=== PATIENT | female | born 1960 | race Caucasian/White ===

== ENCOUNTER → 2018-06-13 | Outpatient (CLI) | payer OTHER ==
[~2018-06-13] MED LIST: LEVOTHYROXINE100 MCG PO
--- NOTE | 2018-06-21 08:46 | Diagnostic Imaging Report ---
#[id number] - MGSCRBIL #BILATERAL DIGITAL SCREENING MAMMOGRAM WITH CAD: 06/13/2018 CLINICAL: Routine screening. Comparison is made to exams dated: 06/10/2017 mammogram and 05/31/2015 mammogram - [facility]. Current study contains 4 films. There are scattered fibroglandular elements in both breasts. Current study was also evaluated with a Computer Aided Detection (CAD) system. There are benign calcifications in both breasts. There is a mole marker on the left breast. No significant masses, calcifications, or other findings are seen in either breast. There has been no significant interval change. IMPRESSION: BENIGN There is no mammographic evidence of malignancy. A 1 year screening mammogram is recommended. The patient will be notified by letter of the results. Fernando ryder/shawna:06/20/2018 16:43:20 [employer] Analyst: Lyubov GARCIA)(Pedro), [facility] letter sent: Compared to Prior B9 Mammogram BI-RADS: 2 Benign
--- NOTE | 2018-06-30 07:50 | Diagnostic Imaging Report ---
PROCEDURE: BONE DXA DUAL ENERGY COMPARISON:None. INDICATIONS:OSTEOPORSIS SCREENING FINDINGS:Evaluation of the left hip and lumbar spine was performed utilizing DEXA Hologic bone densitometer. The study is technically adequate. The patient does not have any known previous non-traumatic fractures or other risk factors. Left hip total bone mineral density: 0.787 gm/cm2, T-score is -1.3, Z-score is -0.5. Lumbar spine total bone mineral density: 0.820 gm/cm2, T-score is -2.1, Z-score is -0.9. Impression: 1. Decreased bone mineral density of the left hip classified as osteopenia, fracture risk is increased. 2. Compared to the prior study dated 06/10/2017 BMD of the hip has decreased by -2.1% 3. Decreased bone mineral density of the lumbar spine classified as osteopenia, fracture risk is increased. 4. Compared to the prior study dated 06/10/2017 BMD of the spine has improved by 4.9% 5. The ten-year fracture risk of a major osteoporotic fracture is 11%. 6. The ten-year fracture risk of a hip fracture is 0.6%. The patient's fracture risk is compared to an age-matched control. Medical evaluation for secondary causes of low bone mineral density may be appropriate. Correlate clinically for the necessity and timing of the next bone mineral density study. National Osteoporosis Foundation recommendations: Initial therapy to reduce fracture risk in postmenopausal women with -BMD t-scores below -2.0 by central DXA with no risk factors -BMD t-scores below -1.5 by central CXA with one or more risk factors (first deg relative with hip fracture, prior personalfracture, low body weight, smoking) -A prior vertebral or hip fracture AACE n(Clinical Endocrinology) recommends treating the following: Postmenopausal women who have osteoporosis as diagnosed by fragility fractures or t-score -2.5 or below. Postmenopausal women who have risk factors (including hx of hip fracture, low body weight, smoking, risk of falling, high bone turnover, advancing age) and borderline low BMD T-scores of -1.5 or below Adequate intake of calcium (at least 1200mg/day) and vitamin D (400-800IU/day). Regular weight bearing and muscle-strengthening exercises Avoid smoking and excessive alcohol Fernando Yoder D.O. Dictated by: Fernando Yoder D.O. on 06/30/2018 at 7:59 Electronically approved by: Fernando Yoder D.O. on 06/30/2018 at 7:59
== END ==
LOC: MAMMO 15:28
PROVIDERS: ATTEND Obstetrics & Gynecology
DX: Z12.31 Encounter for screening mammogram for malignant neoplasm of breast (principal); Z13.820 Encounter for screening for osteoporosis
CPT/HCPCS: 77067; 77080

== ENCOUNTER → 2019-06-11 | Outpatient (CLI) | payer OTHER ==
--- NOTE | 2019-06-13 13:28 | Diagnostic Imaging Report ---
Exam: Bone mineral density study. History: Osteopenia. Comparison: 06/13/2018 Discussion: Evaluation of the left hip and lumbar spine was performed utilizing DEXA Hologic bone densitometer. The study is technically adequate. Left hip total bone mineral density: 0.748gm/cm2, T-score is -1.6, Z-score is -0.8. Left hip femoral neck bone mineral density: 0.692gm/cm2, T-score is -1.4, Z-score is -0.3. Lumbar spine total bone mineral density:0.759gm/cm2, T-score is-2.6, Z-score is -1.4. Impression: 1. Osteopenia of the left hip, fracture risk is increased 2. Osteoporosis of the lumbar spine, fracture risk is high The BMD change in the left hip versus baseline is -8.0% and the BMD change versus previous -5.0% . Least significant change (LSC) for bone mineral density as provided by cue selector is 0.023 g/cm2 for lumbar spine and 0.027 g/cm2 for total hip. 10 -year fracture risk per WHO Fracture Risk Assessment Tool (FRAX) for: Not reported because some T-scores at or below -2.5 The patient's fracture risk is compared to an age-matched control. Medical evaluation for secondary causes of low bone bone mineral density may be appropriate. Correlate clinically for the necessity and timing of the next bone mineral density study. Signed by: Dr. Ricky Gage M.D. on 06/13/2019 1:25 PM
== END ==
LOC: MAMMO 15:17
PROVIDERS: ATTEND Obstetrics & Gynecology
DX: Z12.31 Encounter for screening mammogram for malignant neoplasm of breast (principal); Z13.820 Encounter for screening for osteoporosis
CPT/HCPCS: 77067; 77080

== ENCOUNTER → 2020-06-17 | Outpatient (CLI) | payer OTHER ==
--- NOTE | 2020-06-17 16:09 | Diagnostic Imaging Report ---
EXAM: BONE MINERAL DENSITY HISTORY: Osteoporosis screening COMPARISON: Bone density evaluation 06/11/2019 and 05/31/2015 DISCUSSION: Evaluation of the left hip and lumbar spine was performed utilizing DEXA Hologic bone densitometer. The study is technically adequate. The patient's fracture risk is compared to an age-matched control. The patient denies prior surgery/fracture of the spine, hips or forearm. Left hip femoral neck bone mineral density: 0.656 g/cm2, T-score is -1.7, Z-score is -0.5. Left hip total bone mineral density: 0.741 g/cm2, T-score is -1.6, Z-score is -0.8. Total left hip bone mineral density is decreased by -8.8% compared to baseline, which is statistically significant. Lumbar spine total bone mineral density: 0.726 gm/cm2, T-score is -2.9, Z-score is -1.6. Total lumbar spine bone mineral density is decreased by -8.9% compared to baseline and -4.3% compared to most recent exam, which is statistically significant. Impression: Bone mineralization by WHO Classification is osteoporosis, the fracture risk is high. Signed by: Dr. Nicho Fowler M.D. on 06/17/2020 4:06 PM
== END ==
LOC: MAMMO 15:14
PROVIDERS: ATTEND Obstetrics & Gynecology
DX: Z12.31 Encounter for screening mammogram for malignant neoplasm of breast (principal); Z13.820 Encounter for screening for osteoporosis
CPT/HCPCS: 77067; 77080

== ENCOUNTER → 2021-06-24 | Outpatient (CLI) | payer OTHER | LOC: MAMMO 15:44 | PROVIDERS: ATTEND Internal Medicine | DX: Z12.31 Encounter for screening mammogram for malignant neoplasm of breast (principal) | CPT/HCPCS: 77067 ==

== ENCOUNTER → 2024-11-15 | Outpatient (REF) | payer OTHER | LOC: MAMMO 15:39 | PROVIDERS: ATTEND Internal Medicine | DX: Z12.31 Encounter for screening mammogram for malignant neoplasm of breast (principal); M85.88 Other specified disorders of bone density and structure, other site | CPT/HCPCS: 77067; 77080 ==